=== PATIENT | female | born 1955 | race Caucasian/White ===

== ENCOUNTER 2017-04-11 11:21 | Emergency (ER) | payer SELFPAY ==
[~2017-04-11] VITALS: Ht 165.1 cm; Wt 90.9 kg
[~2017-04-11 11:21] MED LIST: ALBU8I INH; AMAR2TAB PO; ATOR40TA49 PO; BENA25TA8 PO; CITA20 PO; DICL75TA PO; FLUT1INH; FLUT1INH MT; FURO20 PO; GABA300C3 PO; GABA300C5 PO; GLUCTAB PO; HYDR-3533 PO; HYDR10SO PO; LISI-363 PO; NAPR-576 PO; PROM25SU8 PR; VITA250L PO; XANA2TAB2 PO; ZOLP10TA3 PO
[2017-04-11 11:23] VITALS: BP 146/68; PULSE 88; RESP 24; TEMP 98.5; O2SAT 96
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
[2017-04-11] MEDS ORDERED: ORPHENADRINE INJ 60 MG/2 ML AMP IM ONE (12:15)
[2017-04-11] MEDS ORDERED: KETOROLAC TROMETHAMINE 60 MG/2 ML (IM) VIAL IM ONE (12:15)
[2017-04-11] MEDS ORDERED: IBUP800T23 PO (12:36)
[2017-04-11] MEDS ORDERED: ROBA500T PO (12:36)
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
== END 2017-04-11 13:13 | disposition home or self-care (01) ==
LOC: NEPD 11:21
DX: S16.1XXA Strain of muscle, fascia and tendon at neck level, initial encounter (principal); S46.811A Strain of other muscles, fascia and tendons at shoulder and upper arm level, right arm, initial encounter; M62.830 Muscle spasm of back; X50.9XXA Other and unspecified overexertion or strenuous movements or postures, initial encounter; X37.0XXA Hurricane, initial encounter; Y93.H2 Activity, gardening and landscaping
CPT/HCPCS: 96372; 99284; J1885; J2360

== ENCOUNTER 2017-06-14 22:09 | Emergency (ER) | payer SELFPAY ==
[~2017-06-14] VITALS: Ht 165.1 cm; Wt 85.0 kg
[~2017-06-14 22:09] MED LIST changes: +IBUP1TAB7 PO; +ROBA500T PO
[2017-06-14 22:11] VITALS: BP 165/75; PULSE 98; RESP 16; TEMP 98.5; O2SAT 96
[2017-06-14] MEDS ORDERED: KETOROLAC TROMETHAMINE 60 MG/2 ML (IM) VIAL IM ONE (22:30)
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
--- NOTE | 2017-06-14 22:59 | RADRPT ---
EXAM DATE/TIME: 06/14/2017 20:33 [facility] COMPARISON: No previous studies available for comparison. INDICATIONS : Left wrist pain on medial side. MEDICAL HISTORY : Chronic obstructive pulmonary disease. Diabetes mellitus type II. SURGICAL HISTORY : ORIF left wrist. ENCOUNTER: Initial ACUITY: 1 day PAIN SCORE: 9/10 LOCATION: Left wrist FINDINGS: Three view examination of the left wrist demonstrates postoperative plate and screw fixation distal r adius. Previous ulnar styloid fracture. Soft tissue swelling at the wrist. CONCLUSION: 1. Previous fixation distal radius. Soft tissue swelling at the wrist with previous ulnar styloid fra cture. Jaime Subramanian MD on June 14, 2017 at 22:56 Board Certified Radiologist. This report was verified electronically.
== END 2017-06-14 23:24 | disposition home or self-care (01) ==
LOC: NEPK 22:09
DX: S60.212A Contusion of left wrist, initial encounter (principal); S63.502A Unspecified sprain of left wrist, initial encounter; J45.909 Unspecified asthma, uncomplicated; F41.9 Anxiety disorder, unspecified; I10 Essential (primary) hypertension; M41.9 Scoliosis, unspecified; E11.40 Type 2 diabetes mellitus with diabetic neuropathy, unspecified; J44.9 Chronic obstructive pulmonary disease, unspecified; X50.9XXA Other and unspecified overexertion or strenuous movements or postures, initial encounter
CPT/HCPCS: 73110; 96372; 99284; J1885